=== PATIENT | female | born 1985 | race Caucasian/White ===

== ENCOUNTER 2019-12-27 18:23 | Emergency (ER) | payer OTHER, SELFPAY ==
[2019-12-27 18:25] VITALS: BP 102/88; PULSE 96; RESP 20; TEMP 36.6; O2SAT 100
--- NOTE | 2019-12-27 19:21 | ED.DENTAL ---
HPI - Dental/Oral General Chief complaint: Dental/Oral Stated complaint: tooth pain Time Seen by Provider: 12/27/19 18:46 Source: patient and RN notes reviewed Mode of arrival: ambulatory Limitations: no limitations History of Present Illness HPI Narrative: 34-year old female who presents with complaints of dental pain to left upper incisor which is broken off to gum line and last left lower molar for the past 4 days. Patient states that she has been taking Ibuprofen and Tylenol with no relief in her pain which she describes as aching and throbbing rates 04/24. Patient states that she had upcoming appointment at the dental school in [place] but they called and cancelled her appointment and states they will reschedule as soon as possible due to closures of clinic at this time.Patient has multiple missing teeth and noted dental caries with redness of gums noted around stated painful teeth, no drainage noted.Patient denies any fevers, chills or sweats, denies any shortness of breath or any difficulty with swallowing. MD Complaint: tooth pain Location: Tooth # (20&11) Onset (ago): day(s) (4) Duration: constant Severity: severe Severity scale (1-10): 8 Relieving factors: nothing Exacerbating factors: chewing and cold Context: history of dental caries and poor dental care Associated symptoms: gum swelling Treatment prior to arrival: oral analgesic Related Data Home Medications Medication Instructions Recorded Confirmed No Home Medications 12/27/19 12/27/19 Allergies Allergy/AdvReac Type Severity Reaction Status Date / Time No Known Allergies Allergy Verified 12/27/19 18:48 Review of Systems Review of Systems: Narrative: CONSTITUTIONAL: Denies fever, chills, or sweats. EYES: Denies visual changes, redness, or discharge. ENT: Denies rhinorrhea, congestion, sore throat, or otalgia.dental pain with poor dentition with missing teeth and broken teeth and numerous dental caries CARDIOVASCULAR: Denies chest pain, palpitations, or edema. RESPIRATORY: Denies cough or dyspnea.no difficulty with swallowing. GASTROINTESTINAL: Denies abdominal pain, nausea, vomiting, or diarrhea. GENITOURINARY: Denies dysuria or hematuria. SKIN: Denies rash or itching. MUSCULOSKELETAL: Denies back pain, joint pain, or myalgia. NEUROLOGIC: Denies headache, numbness, or weakness. PSYCHIATRIC: Denies anxiety or depression. All systems reviewed & are unremarkable except as noted in HPI and below PMFSH Past Medical History Medical History (Updated 12/29/19 @ 16:43 by Buffy Parra NP) Bronchitis Hypothyroidism Surgical History Surgical History (Updated 12/29/19 @ 16:46 by Buffy Parra NP) H/O LEEP Social History Social History (Updated 12/29/19 @ 16:43 by Buffy Parra NP) Smoking status: Never smoker Living arrangements: with family Gender identity (if verbalized by the patient): Female Comments At time of signature, agree with nursing past medical, surgical, social history. There is no relevant family history pertinent to the presenting complaint Exam Narrative: Exam Narrative: GENERAL: Well-appearing, well-nourished, and in no acute distress. HEAD: Normocephalic, atraumatic. EYES: PERRLA and EOMI. ENT: Nares clear, no rhinorrhea or epistaxis. Mucous membranes moist. TM's normal with good light reflex,throat pink with no swelling, lesions or tonsil swelling, no Radames angina noted, dental caries, broken teeth missing teeth with dental pain #11,20 with redness at gums NECK: Supple.no lymphadenopathy CHEST: Clear to auscultation. No respiratory distress.SSAO2 100% on room air HEART: Regular rate and rhythm. No murmur heard. Normal peripheral pulses. ABDOMEN: Soft, nontender, nondistended, normal active bowel sounds. EXTREMITIES: Normal range of motion. No edema. SKIN: Warm, dry, no rash. NEURO: No focal deficits. Alert and oriented x3. Course Vital Signs Vital signs: Vital Signs Temperature 36.6 C 12/27/19 18:25
== END 2019-12-27 19:45 | disposition home or self-care (01) ==
PROVIDERS: Emergency Provider Registered Nurse
DX: K02.9 Dental caries, unspecified (principal)
CPT/HCPCS: 99213; G0463

== ENCOUNTER 2021-10-05 17:56 | Emergency (ER) | payer OTHER, SELFPAY ==
[2021-10-05 18:04] VITALS: BP 125/86; PULSE 85; RESP 16; TEMP 36.8; O2SAT 99
--- NOTE | 2021-10-05 18:36 | ED.URI ---
HPI - URI/Sore Throat General Chief Complaint: Upper Respiratory Infection Stated Complaint: Ear pain and sore throat Time Seen by Provider: 10/05/21 18:36 Source: patient and family History of Present Illness HPI Narrative: Patient presents with a sore throat and left ear pain. Patient states her symptoms have been going on for quite a while patient states she had a positive strep test September 15 in the emergency room and was put on clindamycin patient states she did not tolerate the clindamycin well it caused GI upset. Patient presents today with continued ear pain and sore throat. No trouble swallowing and no drooling. Patient states she had a negative COVID-19 test earlier in the month Related Data Home Medications Medication Instructions Recorded Confirmed No Home Medications 12/27/19 10/05/21 Allergies Allergy/AdvReac Type Severity Reaction Status Date / Time amoxicillin [From Augmentin] Allergy Intermediate Hives Verified 10/05/21 18:23 clavulanic acid Allergy Intermediate Hives Verified 10/05/21 18:23 [From Augmentin] clindamycin AdvReac Intermediate Nausea and Verified 10/05/21 18:22 Vomiting Review of Systems Review of Systems: CONSTITUTIONAL: Denies fever, chills, or sweats. EYES: Denies visual changes, redness, or discharge. ENT: Denies rhinorrhea, congestion, sore throat, or otalgia. CARDIOVASCULAR: Denies chest pain, palpitations, or edema. RESPIRATORY: Denies cough or dyspnea. GASTROINTESTINAL: Denies abdominal pain, nausea, vomiting, or diarrhea. GENITOURINARY: Denies dysuria or hematuria. SKIN: Denies rash or itching. MUSCULOSKELETAL: Denies back pain, joint pain, or myalgia. NEUROLOGIC: Denies headache, numbness, or weakness. PSYCHIATRIC: Denies anxiety or depression. [facility] Past Medical History Medical History (Updated 10/05/21 @ 18:39 by LULA Chang) Bronchitis Hypothyroidism Surgical History Surgical History (Updated 12/29/19 @ 16:46 by Buffy Parra NP) H/O LEEP Social History Social History (Updated 12/29/19 @ 16:43 by Buffy Parra NP) Smoking status: Never smoker Gender identity (if verbalized by the patient): Female Comments At time of signature, agree with nursing past medical, surgical, social and family history. There is no relevant family history pertinent to the presenting complaint Exam Narrative: GENERAL: Well-appearing, well-nourished, and in no acute distress. HEAD: Normocephalic, atraumatic. EYES: PERRLA and EOMI. ENT: Nares clear, no rhinorrhea or epistaxis. Mucous membranes moist. Moderate amount of postnasal drainage bilateral TM dullness no erythremia to canal no pharyngeal erythremia no yet exudate no trismus can open mouth fully NECK: Supple. CHEST: Clear to auscultation. No respiratory distress. HEART: Regular rate and rhythm. No murmur heard. Normal peripheral pulses. ABDOMEN: Soft, nontender, nondistended, normal active bowel sounds. EXTREMITIES: Normal range of motion. No edema. SKIN: Warm, dry, no rash. NEURO: No focal deficits. Alert and oriented x3. Mitch Coma Scale Eye Opening: Spontaneous 4 [place] Coma Scale Motor: Obeys Commands 6 [place] Coma Scale Verbal: Oriented 5 [place] Coma Scale Total 15 Course Course Level of Care: Express Care Visit Vital Signs Vital signs: Vital Signs Temperature 36.8 C 10/05/21 18:04 Pulse Rate 85 10/05/21 18:04 Respiratory Rate 16 10/05/21 18:04 Blood Pressure 125/86 10/05/21 18:04 Pulse Oximetry 99 10/05/21 18:04 Temperature 36.8 C 10/05/21 18:04 Pulse Rate 85 10/05/21 18:04 Respiratory Rate 16 10/05/21 18:04 Blood Pressure 125/86 10/05/21 18:04 Pulse Oximetry 99 10/05/21 18:04 Critical dx considered and discussed with pt. Educated patient on red flag s/s and to go to ED if s/s occur. Discussed with pt when to return to Express Care or primary care provider. Pt gave verbal undertstanding, all questions were answered, and pt was agree
== END 2021-10-05 18:42 | disposition home or self-care (01) ==
PROVIDERS: Emergency Provider Nurse Practitioner Family; PCP Family Medicine
DX: J02.9 Acute pharyngitis, unspecified (principal); H69.90 Unspecified Eustachian tube disorder, unspecified ear; E03.9 Hypothyroidism, unspecified
CPT/HCPCS: 87081; 87880; 99213; G0463

== ENCOUNTER 2022-12-12 10:03 | Emergency (ER) | payer OTHER, SELFPAY ==
--- NOTE | 2022-12-12 10:04 | ED.URI ---
HPI - URI/Sore Throat General Chief Complaint: Upper Respiratory Infection Stated Complaint: sore throat headache Time Seen by Provider: 12/12/22 10:04 Source: patient and RN notes reviewed History of Present Illness HPI Narrative: Patient is a 37-year-old female presents to urgent care with complaints of body aches, headache, sore throat fever. Patient states it started last night. She has been taking Tylenol for her symptoms. No other acute complaints. No acute distress noted. Patient aware of the plan of care. Some parts of this dictation were generated by voice recognition software and may contain typographical and/or grammatical inaccuracies. Related Data Allergies Allergy/AdvReac Type Severity Reaction Status Date / Time amoxicillin [From Augmentin] Allergy Intermediate Hives Verified 10/05/21 18:23 clavulanic acid Allergy Intermediate Hives Verified 10/05/21 18:23 [From Augmentin] clindamycin AdvReac Intermediate Nausea and Verified 10/05/21 18:22 Vomiting Review of Systems Review of Systems: CONSTITUTIONAL: Reports of fever and chills EYES: Denies visual changes, redness, or discharge. ENT: Denies rhinorrhea, congestion, otalgia. Reports a sore throat CARDIOVASCULAR: Denies chest pain, palpitations, or edema. RESPIRATORY: Denies cough or dyspnea. GASTROINTESTINAL: Denies abdominal pain, nausea, vomiting, or diarrhea. GENITOURINARY: Denies dysuria or hematuria. SKIN: Denies rash or itching. MUSCULOSKELETAL: Denies back pain, joint pain,. Reports body aches NEUROLOGIC: Reports of headache All other systems reviewed are negative, except as documented in HPI. PMFSH Past Medical History Medical History (Updated 12/12/22 @ 10:45 by LULA Hamilton) Bronchitis Hypothyroidism Surgical History Surgical History (Updated 12/29/19 @ 16:46 by Buffy Parra NP) H/O LEEP Social History Social History (Updated 12/29/19 @ 16:43 by Buffy Parra NP) Smoking status: Never smoker Living arrangements: with family Gender identity (if verbalized by the patient): Female Comments At the time of my signature, I reviewed and agree with the nursing past medical, surgical, social, and family history. There is no relevant family history pertinent to the patient complaint. Exam Narrative: GENERAL: This is a well-nourished, well-developed patient, appears fatigued HEAD: normocephalic, atraumatic. EYES: PERRL. Sclera clear/white. Vision is grossly intact. EARS: External ears normal, auditory canals clear and without drainage, TMs normal without perforation. Hearing grossly intact. NOSE: External nose normal with no obvious nasal discharge, nares without redness, no rhinorrhea. THROAT: Mucous membranes moist, moderate erythema posterior pharynx with mild moderate bilateral tonsillar edema without exudate. Moderate postnasal drainage. NECK: Neck supple, non-tender without lymphadenopathy, masses or thyromegaly. CARDIOVASCULAR: Regular rate and rhythm without murmurs, gallops, or rubs. RESPIRATORY: Clear to auscultation. Breath sounds equal bilaterally. No wheezes, rales, or rhonchi. SKIN: Slightly flushed. Warm, intact with no suspicious lesions or rash, good texture and turgor. NEURO: awake, alert, and oriented to person, place and time. There were no obvious focal neurologic abnormalities. EXTREMITIES: No clubbing, cyanosis, or edema. Course Course Level of Care: Express Care Visit Vital Signs Vital signs: Vital Signs Temperature 100.1 F H 12/12/22 10:27 Pulse Rate 110 H 12/12/22 10:27 Respiratory Rate 16 12/12/22 10:27 Blood Pressure 136/79 12/12/22 10:27 Pulse Oximetry 96 12/12/22 10:27 Oxygen Delivery Room Air 12/12/22 10:27 Temperature 100.1 F H 12/12/22 10:27 Pulse Rate 110 H 12/12/22 10:27 Respiratory Rate 16 12/12/22 10:27 Blood Pressure 136/79 12/12/22 10:27 Pulse Oximetry 96 12/12/22 10:27 Oxygen Delivery Room Air 12/12/22 10:27 R
[2022-12-12 10:27] VITALS: BP 136/79; PULSE 110; RESP 16; TEMP 37.8; O2SAT 96
== END 2022-12-12 10:50 | disposition home or self-care (01) ==
PROVIDERS: Emergency Provider Nurse Practitioner Family; PCP Family Medicine
DX: J02.0 Streptococcal pharyngitis (principal); E03.9 Hypothyroidism, unspecified
CPT/HCPCS: 87880; 99213; G0463